=== PATIENT | male | born 1935 | race Caucasian/White ===

== ENCOUNTER 2021-12-28 00:52 | Emergency (ER) | payer OTHER ==
[~2021-12-28] VITALS: Ht 167.6 cm; Wt 85.3 kg
[2021-12-28] MEDS ORDERED: IV NORMAL SALINE 500 ML BAG IV ONE (01:15)
--- NOTE | 2021-12-28 01:15 | NUR ---
Patient A/O x 3. NAD noted.
--- NOTE | 2021-12-28 01:30 | NUR ---
Daughter at bedside.
[2021-12-28 01:43] LABS: HEMATOCRIT 38.1 % (36.7-47.1); MEAN CORPUSCULAR HEMOGLOBIN 28.3 uug (23.8-33.4); MEAN CORPUSCULAR VOLUME 87.4 fL (73.0-96.2); PLATELET COUNT (AUTO) 194 K/uL (152-348)
[2021-12-28 01:44] LABS: CARBON DIOXIDE 23 mmol/L (21-32); CHLORIDE 99 mmol/L (98-107); CREATININE 2.7 mg/dL (0.6-1.3); GLUCOSE 264 mg/dL (74-106); POTASSIUM 5.2 mmol/L (3.5-5.1); UREA NITROGEN, BLOOD 36 mg/dL (7-18)
--- NOTE | 2021-12-28 01:51 | NUR ---
Patient taken downstairs for CT.
[2021-12-28 01:58] LABS: ALANINE AMINOTRANSFERASE 12 U/L (16-63); ALKALINE PHOSPHATASE 93 U/L (50-136); ASPARTATE AMINOTRANSFERASE 10 U/L (15-37); BILIRUBIN,DIRECT 0.3 mg/dL (0.0-0.2); BILIRUBIN,TOTAL 0.7 mg/dL (0.2-1.0)
[2021-12-28] MEDS ORDERED: FINA5TAB11 PO (01:59)
[2021-12-28] MEDS ORDERED: GLIP10TA11 PO (01:59)
[2021-12-28] MEDS ORDERED: ATOR80TA PO (01:59)
[2021-12-28] MEDS ORDERED: DABI150C PO (01:59)
[2021-12-28] MEDS ORDERED: TRAM50TA2 PO (01:59)
[2021-12-28] MEDS ORDERED: IPRA0.2S48 NEB (01:59)
[2021-12-28] MEDS ORDERED: NPH,100V SQ (01:59)
[2021-12-28] MEDS ORDERED: MUPI22OI2 TP (01:59)
[2021-12-28] MEDS ORDERED: CALC0.253 PO (01:59)
[2021-12-28] MEDS ORDERED: FURO40TA5 PO (01:59)
[2021-12-28] MEDS ORDERED: GABA-532 PO (01:59)
[2021-12-28] MEDS ORDERED: ASPI81TA31 PO (01:59)
[2021-12-28] MEDS ORDERED: FERR325T28 PO (01:59)
[2021-12-28] MEDS ORDERED: LISI2.5T14 PO (01:59)
[2021-12-28] MEDS ORDERED: CARV6.252 PO (01:59)
--- NOTE | 2021-12-28 02:05 | NUR ---
Patient back from CT.
--- NOTE | 2021-12-28 02:16 | NUR ---
COVID and FLU swabs sent to lab.
[2021-12-28] MEDS ORDERED: ALBUTEROL SULFATE 2.5 MG/3 ML NEBU NEB ONE (03:00)
[2021-12-28] MEDS ORDERED: ALBUTEROL SULFATE 2.5 MG/3 ML NEBU ONE (03:12)
--- NOTE | 2021-12-28 03:21 | NUR ---
Called [facility] for possible transfer/admission, awaiting MD peer to peer.
--- NOTE | 2021-12-28 03:29 | NUR ---
Dr. Corbin speaking with Johnathon VALENTINE.
--- NOTE | 2021-12-28 04:24 | NUR ---
Patient sleeping, easily awakend when spoken to.
--- NOTE | 2021-12-28 05:09 | NUR ---
[facility] called. Patient will be transfered to [place] room 2307A ([phone]). Petey Unger admitting physician. [facility] ETA [id number].
--- NOTE | 2021-12-28 05:40 | NUR ---
Report given to Kenyatta BUI at [facility].
--- NOTE | 2021-12-28 06:34 | NUR ---
[facility] has arrived.
--- NOTE | 2021-12-28 06:50 | NUR ---
Patient discharged to [facility] in stable condition with [facility]. A/O x4. NAD noted. All belonigngs with patient.
[2021-12-28 06:51] VITALS: BP 131/70
== END 2021-12-28 06:50 | disposition short-term general hospital (02) ==
LOC: ER 00:54
DX: R42 Dizziness and giddiness (principal); R53.1 Weakness; E87.5 Hyperkalemia; Z20.822 Contact with and (suspected) exposure to COVID-19; I48.91 Unspecified atrial fibrillation; I45.10 Unspecified right bundle-branch block; E11.9 Type 2 diabetes mellitus without complications; N40.0 Benign prostatic hyperplasia without lower urinary tract symptoms; I11.0 Hypertensive heart disease with heart failure; I50.9 Heart failure, unspecified; I25.10 Atherosclerotic heart disease of native coronary artery without angina pectoris; R60.0 Localized edema; Z95.5 Presence of coronary angioplasty implant and graft; Z79.4 Long term (current) use of insulin; Z79.84 Long term (current) use of oral hypoglycemic drugs
CPT/HCPCS: 99291; 96360; 70450; 87426; 80076; 80048; 83880; 85025; 87400; 84484 ×2; 36415; 93005; 71045; 94640; J7040; A4663